=== PATIENT | male | born 1970 | race Two or more races ===

== ENCOUNTER 2021-04-19 12:32 | Emergency (ER) | payer MEDICAID, OTHER ==
[~2021-04-19] VITALS: Ht 165.1 cm; Wt 59.0 kg
[~2021-04-19 12:32] MED LIST: BUPR100T5 PO; DIVA500T2 PO
--- NOTE | 2021-04-19 12:33 | NUR ---
PT BIB SELF C/O DEPRESSED SUICIDAL PLAN TO OD ON DRUGS, ADMITS TO METH USE. PT IS AAOX4, NOT IN RESPIRATORY DISTRESS, V/S STABLE, KEPT RESTED AND COMFORTABLE. WILL CONTINUE TO MONITOR.
[2021-04-19 13:05] VITALS: BP 134/70
--- NOTE | 2021-04-19 13:05 | NUR ---
URINE SPECIMEN COLLECTED AND SENT TO LAB.
[2021-04-19 13:38] LABS: BASOPHILS % (AUTO) 0.5 % (0.0-2.0); HEMATOCRIT 37 % (39-51); HEMOGLOBIN 12.9 g/dL (13.5-17.5); LYMPHOCYTES # (AUTO) 1.7 K/uL (0.8-4.8); MEAN CORPUSCULAR HGB CONC 34 g/dl (31.0-36.0); MEAN CORPUSCULAR VOLUME 96 fL (80-96); MONOCYTES # (AUTO) 1.1 K/uL (0.1-1.30); MONOCYTES % (AUTO) 17.6 % (2.0-12.0); NEUTROPHILS # (AUTO) 2.9 K/uL (1.8-8.9); NEUTROPHILS % (AUTO) 48.9 % (43.0-81.0); PLATELET COUNT (AUTO) 215 K/uL (150-450)
[2021-04-19 13:52] LABS: CALCIUM, SERUM 8.6 mg/dL (8.5-10.1); CARBON DIOXIDE 26 mmol/L (21-32); CHLORIDE 92 mmol/L (98-107); CREATININE 1.1 mg/dL (0.6-1.3); GLUCOSE 93 mg/dL (74-106); POTASSIUM 3.5 mmol/L (3.5-5.1); SODIUM SERUM 127 mmol/L (136-145); UREA NITROGEN, BLOOD 23 mg/dL (7-18)
[2021-04-19 13:53] LABS: BILIRUBIN,URINE SMALL (NEGATIVE); COLOR,URINE YELLOW (YELLOW); LEUKOCYTE ESTERASE ,URINE NEGATIVE (NEGATIVE); NITRITE, URINE NEGATIVE (NEGATIVE); PROTEIN,URINE NEGATIVE (NEGATIVE); UGLUCOSE NEGATIVE (NEGATIVE)
[2021-04-19 13:58] LABS: ALANINE AMINOTRANSFERASE 47 U/L (12-78); ALBUMIN 3.4 g/dL (3.4-5.0); ALCOHOL, BLOOD < 3 mg/dL (0-0); ALKALINE PHOSPHATASE 64 U/L (46-116); ASPARTATE AMINOTRANSFERASE 66 U/L (15-37); BILIRUBIN,DIRECT 0.3 mg/dL (0.0-0.2); BILIRUBIN,TOTAL 0.9 mg/dL (0.2-1.0); TOTAL PROTEIN, SERUM 6.5 g/dL (6.4-8.2)
[2021-04-19 14:09] LABS: ACETAMINOPHEN < 0 ug/ml (10-30)
[2021-04-19 14:09] LABS: BACTERIA,URINE Few /HPF (None Seen); RBC,URINE 0-2 /HPF (0-2); SQUAMOUS EPITHELIAL CELL,UR Few /HPF (None Seen); WBC,URINE 0-2 /HPF (0-3)
[2021-04-19 14:21] LABS: EOSINOPHILS % (MANUAL) 6 % (0-4); LYMPHOCYTES % (MANUAL) 30 % (16-48); MONOCYTES % (MANUAL) 20 % (0-11.0); NEUTROPHILS % (MANUAL) 44 (42-76)
[2021-04-19] MEDS ORDERED: IV LR 1000 ML 1,000 ML IV ONE (14:30)
--- NOTE | 2021-04-19 15:50 | NUR ---
FA[facility]ED CLINICALS TO [facility]
--- NOTE | 2021-04-19 20:05 | NUR ---
PT PICKED UP BY [facility] FROM [facility]. PT IS IN STABLE CONDITION FOR TRANSPORT. PT IS AMBULATORY ON STEADY GAIT
== END 2021-04-19 20:07 ==
LOC: ER 12:37
DX: R45.851 Suicidal ideations (principal); F15.10 Other stimulant abuse, uncomplicated; F14.10 Cocaine abuse, uncomplicated; E87.1 Hypo-osmolality and hyponatremia; Z59.00 Homelessness unspecified; F17.290 Nicotine dependence, other tobacco product, uncomplicated; G40.909 Epilepsy, unspecified, not intractable, without status epilepticus; F32.A Depression, unspecified
CPT/HCPCS: 36415; 80048; 80076; 80143; 80307; 80320; 81001; 85007; 85025; 87426; 96360; 99285; 99406; C9803; J7120; G0480

== ENCOUNTER 2021-08-25 17:28 | Emergency (ER) | payer MEDICAID ==
[~2021-08-25] VITALS: Ht 162.6 cm; Wt 53.1 kg
[2021-08-25 18:03] LABS: BASOPHILS % (AUTO) 0.5 % (0.0-2.0); EOSINOPHILS % (AUTO) 1.2 % (0.0-6.0); HEMATOCRIT 34 % (39-51); HEMOGLOBIN 11.5 g/dL (13.5-17.5); LYMPHOCYTES # (AUTO) 1.6 K/uL (0.8-4.8); LYMPHOCYTES % (AUTO) 19.4 % (20.0-44.0); MEAN CORPUSCULAR HGB CONC 34 g/dl (31.0-36.0); MEAN CORPUSCULAR VOLUME 96 fL (80-96); MONOCYTES # (AUTO) 0.8 K/uL (0.1-1.30); MONOCYTES % (AUTO) 9.4 % (2.0-12.0); NEUTROPHILS # (AUTO) 5.8 K/uL (1.8-8.9); NEUTROPHILS % (AUTO) 69.5 % (43.0-81.0); PLATELET COUNT (AUTO) 319 K/uL (150-450); RED BLOOD CELL COUNT(AUTO) 3.56 MIL/uL (4.5-6.0); WHITE BLOOD COUNT (AUTO) 8.3 K/uL (4.3-11.0)
--- NOTE | 2021-08-25 18:06 | NUR ---
COVID SWAB COLLECTED. URINE SAMPLE OBTAINED AND SENT TO LAB.
[2021-08-25 18:25] LABS: ALANINE AMINOTRANSFERASE 35 U/L (12-78); ALBUMIN 3.6 g/dL (3.4-5.0); ALKALINE PHOSPHATASE 97 U/L (46-116); ASPARTATE AMINOTRANSFERASE 39 U/L (15-37); BILIRUBIN,DIRECT 0.2 mg/dL (0.0-0.2); BILIRUBIN,TOTAL 0.4 mg/dL (0.2-1.0); CALCIUM, SERUM 8.9 mg/dL (8.5-10.1); CARBON DIOXIDE 29 mmol/L (21-32); CHLORIDE 103 mmol/L (98-107); CREATININE 0.9 mg/dL (0.6-1.3); GLUCOSE 98 mg/dL (74-106); SODIUM SERUM 138 mmol/L (136-145); UREA NITROGEN, BLOOD 8 mg/dL (7-18)
[2021-08-25 18:29] LABS: ACETAMINOPHEN < 0 ug/ml (10-30); ALCOHOL, BLOOD < 3 mg/dL (0-0)
[2021-08-25] MEDS ORDERED: IBUPROFEN 400 MG TABLET ONE (18:57)
[2021-08-25] MEDS ORDERED: IBUPROFEN 400 MG TABLET PO ONE (19:00)
[2021-08-25 19:13] LABS: BILIRUBIN,URINE NEGATIVE (NEGATIVE); COLOR,URINE YELLOW (YELLOW); LEUKOCYTE ESTERASE ,URINE NEGATIVE (NEGATIVE); NITRITE, URINE NEGATIVE (NEGATIVE); PH,URINE 7.5 (5.0-8.0); PROTEIN,URINE NEGATIVE (NEGATIVE); UGLUCOSE NEGATIVE (NEGATIVE); UROBILINOGEN,URINE 0.2 EU/dL (0.2)
[2021-08-25 19:25] VITALS: BP 125/74
--- NOTE | 2021-08-25 19:30 | NUR ---
PT DENIED SI/HI AND REPORTED FEELING WELL AND WILLING TO LEAVE. MADE AWARE
--- NOTE | 2021-08-25 20:49 | NUR ---
Patient discharged to home in stable condition. Written and verbal after care instructions given. Patient verbalizes understanding of instruction.
== END 2021-08-25 20:50 | disposition home or self-care (01) ==
LOC: ER 17:36
DX: Z02.2 Encounter for examination for admission to residential institution (principal); R45.851 Suicidal ideations; Z20.822 Contact with and (suspected) exposure to COVID-19; Z59.00 Homelessness unspecified; G40.909 Epilepsy, unspecified, not intractable, without status epilepticus; F20.9 Schizophrenia, unspecified; F32.A Depression, unspecified; Z79.899 Other long term (current) drug therapy
CPT/HCPCS: 99285; 85025; 80048; 80076; 81003; 36415; 87426; 80143; 80320; 80307; C9803; G0480

== ENCOUNTER 2021-08-29 19:06 | Emergency (ER) | payer MEDICAID ==
--- NOTE | 2021-08-29 20:55 | NUR ---
CALL TO TRIAGE NO ANSWER
--- NOTE | 2021-08-29 21:24 | NUR ---
CALLED TO TRIAGE NO ANSWER
== END 2021-08-29 21:25 | disposition home or self-care (01) ==
LOC: ER 19:18
DX: Z53.21 Procedure and treatment not carried out due to patient leaving prior to being seen by health care provider (principal)

== ENCOUNTER 2021-09-05 19:16 | Emergency (ER) | payer MEDICAID ==
[~2021-09-05] VITALS: Ht 165.1 cm; Wt 53.1 kg
--- NOTE | 2021-09-05 20:49 | NUR ---
URINE COLLECTED SENT TO LAB
--- NOTE | 2021-09-05 20:49 | NUR ---
COVID SWAB COLLECTED SENT TO LAB
--- NOTE | 2021-09-05 21:00 | NUR ---
BIBS. TO E RBED 18. AAOX4. NOT IN RESP DISTRESS. AMBULATORY. CAME IN FOR HAVING THOUGHTS OF SUICIDE BUT HAVE NO SPECIFIC PLAN. PT IS SEEKING TO BE ADMITTED VOLUNTARILY. PT WAS GOWN, INSPECTED, WANDED AND ALL BELONGINGS PLACED IN THE LOCKER. URINE WAS COLLECETD WELL COVID SWAB. WAS AT THE BEDSIDE FOR EVAL.
[2021-09-05 21:18] LABS: BASOPHILS # (AUTO) 0.1 K/uL (0.0-0.2); EOSINOPHILS % (AUTO) 8.5 % (0.0-6.0); HEMATOCRIT 35 % (39-51); HEMOGLOBIN 11.6 g/dL (13.5-17.5); LYMPHOCYTES # (AUTO) 1.5 K/uL (0.8-4.8); LYMPHOCYTES % (AUTO) 18.9 % (20.0-44.0); MEAN CORPUSCULAR HGB CONC 33 g/dl (31.0-36.0); MEAN CORPUSCULAR VOLUME 96 fL (80-96); MONOCYTES # (AUTO) 0.4 K/uL (0.1-1.30); MONOCYTES % (AUTO) 5.3 % (2.0-12.0); NEUTROPHILS # (AUTO) 5.3 K/uL (1.8-8.9); NEUTROPHILS % (AUTO) 66.3 % (43.0-81.0); PLATELET COUNT (AUTO) 357 K/uL (150-450); RED BLOOD CELL COUNT(AUTO) 3.62 MIL/uL (4.5-6.0); WHITE BLOOD COUNT (AUTO) 8.1 K/uL (4.3-11.0)
[2021-09-05 21:37] LABS: BILIRUBIN,URINE SMALL (NEGATIVE); COLOR,URINE YELLOW (YELLOW); LEUKOCYTE ESTERASE ,URINE NEGATIVE (NEGATIVE); NITRITE, URINE NEGATIVE (NEGATIVE); PH,URINE 5.5 (5.0-8.0); PROTEIN,URINE TRACE mg/dl (NEGATIVE); UGLUCOSE NEGATIVE (NEGATIVE)
[2021-09-05] MEDS ORDERED: DIVALPROEX SODIUM 500 MG TABLET.DR PO ONE (21:47)
[2021-09-05 21:49] LABS: ALANINE AMINOTRANSFERASE 32 U/L (12-78); ALBUMIN 3.8 g/dL (3.4-5.0); ALKALINE PHOSPHATASE 72 U/L (46-116); ASPARTATE AMINOTRANSFERASE 36 U/L (15-37); BILIRUBIN,DIRECT 0.2 mg/dL (0.0-0.2); BILIRUBIN,TOTAL 0.5 mg/dL (0.2-1.0); CALCIUM, SERUM 8.6 mg/dL (8.5-10.1); CARBON DIOXIDE 27 mmol/L (21-32); CHLORIDE 99 mmol/L (98-107); GLUCOSE 52 mg/dL (74-106); POTASSIUM 3.3 mmol/L (3.5-5.1); SODIUM SERUM 133 mmol/L (136-145); TOTAL PROTEIN, SERUM 7.4 g/dL (6.4-8.2); UREA NITROGEN, BLOOD 17 mg/dL (7-18)
[2021-09-05 21:52] LABS: BACTERIA,URINE RARE /HPF (None Seen); CALCIUM OXALATE CRYSTALS,UR Many /HPF (None Seen); RBC,URINE 0-2 /HPF (0-2); URINE AMORPHOUS URATE Many /HPF (None Seen); WBC,URINE 0-2 /HPF (0-3)
[2021-09-05 21:53] LABS: MUCUS,URINE Few /LPF (None Seen)
[2021-09-05] MEDS: DIVALPROEX SODIUM 500 MG TABLET.DR PO ONE (21:54)
[2021-09-05 21:58] LABS: ALCOHOL, BLOOD < 3 mg/dL (0-0)
--- NOTE | 2021-09-06 00:30 | NUR ---
CLINICALS FAXED TO [facility]
--- NOTE | 2021-09-06 03:09 | NUR ---
PT ACCEPTED AT [facility] UNDER MD ATWOOD REPORT AFTER 9AM NUMBER [phone]
[2021-09-06] MEDS ORDERED: POTASSIUM CHLORIDE 20 MEQ TAB.PRT.SR PO ONE (04:10)
[2021-09-06] MEDS: POTASSIUM CHLORIDE 20 MEQ TAB.PRT.SR PO ONE (04:12)
--- NOTE | 2021-09-06 09:20 | NUR ---
report to nursing housekeeping supervisor [facility] awaiting transport.
--- NOTE | 2021-09-06 09:25 | NUR ---
ETA 30 MINS BLS TRANSPORT VIA [facility].
--- NOTE | 2021-09-06 09:28 | NUR ---
BLS TRANSPORT CANCELLED. TRANSPORT FROM [facility].
--- NOTE | 2021-09-06 09:31 | NUR ---
transported to [facility]. stable codition.
[2021-09-06 09:32] VITALS: BP 135/60
== END 2021-09-06 09:33 ==
LOC: ER 19:19
DX: R45.851 Suicidal ideations (principal); F20.9 Schizophrenia, unspecified; Z20.822 Contact with and (suspected) exposure to COVID-19; Z59.02 Unsheltered homelessness; G40.909 Epilepsy, unspecified, not intractable, without status epilepticus; F90.9 Attention-deficit hyperactivity disorder, unspecified type; Z91.14 Patient's other noncompliance with medication regimen; F10.10 Alcohol abuse, uncomplicated; Y90.0 Blood alcohol level of less than 20 mg/100 ml
CPT/HCPCS: 99285; 85025; 80048; 80076; 81001; 36415; 80164; 87426; 80143; 80320; 80307; C9803; G0480

== ENCOUNTER 2021-10-28 03:05 | Emergency (ER) | payer MEDICAID ==
[~2021-10-28] VITALS: Ht 165.1 cm; Wt 59.0 kg
[2021-10-28 03:52] LABS: BASOPHILS # (AUTO) 0.1 K/uL (0.0-0.2); BASOPHILS % (AUTO) 0.7 % (0.0-2.0); EOSINOPHILS % (AUTO) 2.4 % (0.0-6.0); HEMATOCRIT 34 % (39-51); HEMOGLOBIN 11.3 g/dL (13.5-17.5); LYMPHOCYTES # (AUTO) 2.2 K/uL (0.8-4.8); LYMPHOCYTES % (AUTO) 26.2 % (20.0-44.0); MEAN CORPUSCULAR HGB CONC 33 g/dl (31.0-36.0); MEAN CORPUSCULAR VOLUME 96 fL (80-96); MONOCYTES # (AUTO) 0.6 K/uL (0.1-1.30); MONOCYTES % (AUTO) 6.9 % (2.0-12.0); NEUTROPHILS # (AUTO) 5.3 K/uL (1.8-8.9); NEUTROPHILS % (AUTO) 63.8 % (43.0-81.0); PLATELET COUNT (AUTO) 352 K/uL (150-450); RED BLOOD CELL COUNT(AUTO) 3.54 MIL/uL (4.5-6.0); WHITE BLOOD COUNT (AUTO) 8.3 K/uL (4.3-11.0)
[2021-10-28 03:57] LABS: BILIRUBIN,URINE NEGATIVE (NEGATIVE); COLOR,URINE YELLOW (YELLOW); LEUKOCYTE ESTERASE ,URINE NEGATIVE (NEGATIVE); NITRITE, URINE NEGATIVE (NEGATIVE); PROTEIN,URINE NEGATIVE (NEGATIVE); UGLUCOSE NEGATIVE (NEGATIVE); UROBILINOGEN,URINE 0.2 EU/dL (0.2)
[2021-10-28] MEDS ORDERED: BACITRACIN ZINC OINT PACKET 1 EA PACKET TP ONE (04:00)
[2021-10-28] MEDS ORDERED: IBUPROFEN 600 MG TABLET PO ONE (04:00)
[2021-10-28] MEDS ORDERED: IBUPROFEN 600 MG TABLET ONE (04:06)
[2021-10-28 04:09] LABS: ALANINE AMINOTRANSFERASE 34 U/L (12-78); ALKALINE PHOSPHATASE 61 U/L (46-116); ASPARTATE AMINOTRANSFERASE 39 U/L (15-37); BILIRUBIN,DIRECT 0.1 mg/dL (0.0-0.2); BILIRUBIN,TOTAL 0.4 mg/dL (0.2-1.0); CALCIUM, SERUM 9.5 mg/dL (8.5-10.1); CARBON DIOXIDE 30 mmol/L (21-32); CHLORIDE 94 mmol/L (98-107); CREATININE 0.9 mg/dL (0.6-1.3); GLUCOSE 82 mg/dL (74-106); POTASSIUM 4.3 mmol/L (3.5-5.1); SODIUM SERUM 129 mmol/L (136-145); TOTAL PROTEIN, SERUM 7.4 g/dL (6.4-8.2); UREA NITROGEN, BLOOD 15 mg/dL (7-18)
[2021-10-28 04:17] LABS: ACETAMINOPHEN < 2 ug/ml (10-30); ALCOHOL, BLOOD < 3 mg/dL (0-0)
--- NOTE | 2021-10-28 05:34 | NUR ---
FACESHEET AND CLINICALS FAXED TO [facility].
[2021-10-28] MEDS ORDERED: buPROPion SR 100 MG TABLET.ER PO SCH (10:30)
[2021-10-28] MEDS ORDERED: DIVALPROEX SODIUM 500 MG TABLET.DR PO ONE ×2 (10:30→10:34)
--- NOTE | 2021-10-28 12:19 | NUR ---
ACCEPTED AT [facility] BY DR APPLE,WEAVING TEACHER AT [phone]
--- NOTE | 2021-10-28 13:09 | NUR ---
PT STATED HE IS NO LONGER SUICIDAL AND WANTS TO LEAVE, DR VANG AWARE, EVALUATED PT AND DISCHARGED HIM IN STABLE CONDITION.
[2021-10-28 13:10] VITALS: BP 122/60
== END 2021-10-28 13:11 | disposition home or self-care (01) ==
LOC: ER 03:06
DX: R45.851 Suicidal ideations (principal); F20.9 Schizophrenia, unspecified; E87.1 Hypo-osmolality and hyponatremia; Z59.00 Homelessness unspecified; Z20.822 Contact with and (suspected) exposure to COVID-19; G40.909 Epilepsy, unspecified, not intractable, without status epilepticus; F12.90 Cannabis use, unspecified, uncomplicated; S90.424A Blister (nonthermal), right lesser toe(s), initial encounter; X58.XXXA Exposure to other specified factors, initial encounter; Y92.89 Other specified places as the place of occurrence of the external cause; Z79.899 Other long term (current) drug therapy
CPT/HCPCS: 36415; 80048-TC; 80076-TC; 85025-TC; C9803; G0480

== ENCOUNTER 2021-11-07 07:02 | Emergency (ER) | payer MEDICAID ==
[~2021-11-07] VITALS: Ht 165.1 cm; Wt 63.5 kg
--- NOTE | 2021-11-07 07:52 | NUR ---
urine sample and covid swab collected
[2021-11-07 08:27] LABS: ALANINE AMINOTRANSFERASE 24 U/L (12-78); ALBUMIN 4.3 g/dL (3.4-5.0); ALKALINE PHOSPHATASE 67 U/L (46-116); ASPARTATE AMINOTRANSFERASE 38 U/L (15-37); BILIRUBIN,DIRECT 0.2 mg/dL (0.0-0.2); BILIRUBIN,TOTAL 0.5 mg/dL (0.2-1.0); CALCIUM, SERUM 9.2 mg/dL (8.5-10.1); CARBON DIOXIDE 29 mmol/L (21-32); CHLORIDE 98 mmol/L (98-107); CREATININE 1.3 mg/dL (0.6-1.3); GLUCOSE 94 mg/dL (74-106); POTASSIUM 4.2 mmol/L (3.5-5.1); SODIUM SERUM 133 mmol/L (136-145); TOTAL PROTEIN, SERUM 7.6 g/dL (6.4-8.2); UREA NITROGEN, BLOOD 25 mg/dL (7-18)
[2021-11-07 08:32] LABS: BASOPHILS % (AUTO) 0.3 % (0.0-2.0); EOSINOPHILS % (AUTO) 5.1 % (0.0-6.0); HEMATOCRIT 36 % (39-51); HEMOGLOBIN 11.7 g/dL (13.5-17.5); LYMPHOCYTES # (AUTO) 2.8 K/uL (0.8-4.8); LYMPHOCYTES % (AUTO) 37.6 % (20.0-44.0); MEAN CORPUSCULAR HGB CONC 33 g/dl (31.0-36.0); MEAN CORPUSCULAR VOLUME 94 fL (80-96); MONOCYTES # (AUTO) 0.7 K/uL (0.1-1.30); MONOCYTES % (AUTO) 9.2 % (2.0-12.0); NEUTROPHILS # (AUTO) 3.6 K/uL (1.8-8.9); NEUTROPHILS % (AUTO) 47.8 % (43.0-81.0); PLATELET COUNT (AUTO) 263 K/uL (150-450); RED BLOOD CELL COUNT(AUTO) 3.77 MIL/uL (4.5-6.0); WHITE BLOOD COUNT (AUTO) 7.5 K/uL (4.3-11.0)
[2021-11-07 08:34] LABS: ACETAMINOPHEN < 10 ug/ml (10-30); ALCOHOL, BLOOD < 3 mg/dL (0-0)
[2021-11-07 08:43] LABS: BILIRUBIN,URINE NEGATIVE (NEGATIVE); COLOR,URINE YELLOW (YELLOW); LEUKOCYTE ESTERASE ,URINE NEGATIVE (NEGATIVE); NITRITE, URINE NEGATIVE (NEGATIVE); PH,URINE 6.5 (5.0-8.0); PROTEIN,URINE NEGATIVE (NEGATIVE); UGLUCOSE NEGATIVE (NEGATIVE); UROBILINOGEN,URINE 0.2 EU/dL (0.2)
--- NOTE | 2021-11-07 11:51 | NUR ---
Utilization Supervisor Consult SW received a consult because pt. requested admission to [facility] for voluntary psychiatric tx. TYSON met with pt. who disclosed that he was discharged from [facility] around 9 am. Per pt. report, his prescrition medication was sent to ([facility]) pharmacy but when he showed up they had not received orders for his medication. Pt. requested to have [facility] During check in, pt appeared disheveled and engaged in conversation with TYSON. TYSON assessed for SI (suicidal ideation) in which pt. denied plan, means, or intent. Pt disclosed he had used meth and cannabis. TYSON contacted [facility] to send prescriptions to [facility] [[address] [place] [address] ] which will be available to be picked up today in the afternoon. Pt is agrreable to plan. TYSON provided pt with TAP card with bus directions to pharmacy. TYSON provided pt. with long term resources, mental health resources, and addiction resources in which pt. accepted them. Pt. signed the homeless waiver and was placed in his chart. TYSON discused discharge plan with and he was agreeable. Year-round shelters: [facility] [place] [address] [place], [place] [id number] ; [facility] [place] [address] [place] [address]; [facility] [id number] [facility]. [facility] [address] Hygiene: [facility]: [address]. [place] ; [facility] [address] [facility] ; [facility] [address] [place] . Food Resources: [place] [facility] at [facility]- [address]. [place]; Meet Each Need with Dignity (MEND) [address] [address] Mal[address]; [facility] [address] [facility]; [facility] [address] [place]. Mental Health resources provided: [facility] [address] [place], [place] [address] ; [facility] [address] [facility] [address], [place] [address] ; [facility] Mental [facility] [address] [place], [place] [phone] ; [facility] [address] [place], [place] [address] Healthcare Clinics: [facility] [address] [facility], [address] [place]. [place] ; [facility] [address] [facility] [address] [place] [address]; [facility] [address] [facility] [place] [address] [phone] Counseling--Outpatient [facility] [address], [place] [address] (Specializes in in-depth psychotherapy for emotional distress: anxiety, depression, interpersonal conflicts, life transitions, childhood abuse) [facility] [address] [place] [address] (Assist with solving problem marital difficulties, separation & divorce, aging parents, & grief, chronic & terminal illness) [facility] [address] [place] [address] (Deal with loss & grief, anxiety, marital difficulties) Homebound/Mental Health Services [address], [address] [place], [place] [id number] (Provide in-home mental services to people who are incapable of leaving their homes) [facility] Needs of the Elderly Senior Service/Resource Center [address] [place] [address] [facility] [address] [facility] [place] [address] PSYCHIATRIC OUTPATIENT SERVICES [facility] Partial Hospitalization and Intensive Outpatient Program (Managed Care and [place] Only)[address]. [facility] [phone] [facility] Partial Hospitalization and Outpatient [address] [place], [place] [phone] TROY CARVAJAL [facility] [place] [id number] [facility]. [address] [place], [place] [phone] [facility] Partial Hospitalization and Outpatient Wtagqgf60426 [facility] Troy Carvajal, [phone] Substance Abuse resources provided included: [facility] Substance Abuse Self-Helpline ([facility]) ; [facility]LP [address] [facility] [phone] ; [facility] [place] [address] [facility] [address] ; [facility] [address] [facility] [address] ; [facility] [address] [facility] [address] ; [facility] 4940 [facility] [address] ; [facility] [address] [facility] [address] ; [facility] Substance Abuse Helpline([facility])-[facility] ; [facility] ; [facility] [place]; [facility] [place]; [facility] [place]; [facility] [place] Davidsonwhit; [facility] [place]; [facility] [place]; [facility] [place] [facility] [place]; Alcoholics Anonymous -SFV; [place] ; Marijuana Anonymous -SFV; Narcotics Anonymous www.na.org;
--- NOTE | 2021-11-07 13:14 | NUR ---
Patient discharged to home in stable condition. Written and verbal after care instructions given. Patient verbalizes understanding of instruction.
[2021-11-07 13:15] VITALS: BP 115/84
== END 2021-11-07 13:16 | disposition home or self-care (01) ==
LOC: ER 07:12
DX: Z00.8 Encounter for other general examination (principal); Z76.0 Encounter for issue of repeat prescription; G40.909 Epilepsy, unspecified, not intractable, without status epilepticus; Z20.822 Contact with and (suspected) exposure to COVID-19; Z59.00 Homelessness unspecified
CPT/HCPCS: 99283; 85025; 80048; 80076; 81003; 36415; 87426; 80143; 80320; 80307; C9803; G0480

== ENCOUNTER 2021-12-06 08:50 | Inpatient (IN) | payer MEDICAID ==
[~2021-12-06] VITALS: Ht 165.1 cm; Wt 56.2 kg
--- NOTE | 2021-12-06 08:55 | NUR ---
BIB RA88 FROM [facility] FOR ALTERED MENTAL STATUS AND SLURRED SPEECH.L AST KNOWN WELL IS UNKOWN. BLOD GLUCOSE HIGHWAY MAINTENANCE TECHNICIAN 126. PT ATTACHED TO MONITOR, VITALS ARE WITHIN NORMAL LIMITS. DR LANDRUM AT BEDSIDE FOR EVAL.
--- NOTE | 2021-12-06 09:01 | NUR ---
CODE STROKE CALLED
--- NOTE | 2021-12-06 09:05 | NUR ---
PT TO CT VIA [facility]OTOCALS.
--- NOTE | 2021-12-06 09:07 | NUR ---
CALLED TELE MED [facility] [phone] Marvel MONTOYA
--- NOTE | 2021-12-06 09:21 | NUR ---
PT BACK FROM CT, PT WAS COMBATIVE WITH STAFF DURING CT, CTA WAS NOT PERFORMED, MD AWARE.
[2021-12-06 09:28] LABS: BASOPHILS % (AUTO) 0.4 % (0.0-2.0); EOSINOPHILS % (AUTO) 19.5 % (0.0-6.0); HEMATOCRIT 32 % (39-51); HEMOGLOBIN 10.7 g/dL (13.5-17.5); LYMPHOCYTES # (AUTO) 1.5 K/uL (0.8-4.8); LYMPHOCYTES % (AUTO) 29.1 % (20.0-44.0); MEAN CORPUSCULAR HGB CONC 33 g/dl (31.0-36.0); MEAN CORPUSCULAR VOLUME 92 fL (80-96); MONOCYTES # (AUTO) 0.7 K/uL (0.1-1.30); MONOCYTES % (AUTO) 12.5 % (2.0-12.0); NEUTROPHILS % (AUTO) 38.5 % (43.0-81.0); PLATELET COUNT (AUTO) 324 K/uL (150-450); RED BLOOD CELL COUNT(AUTO) 3.49 MIL/uL (4.5-6.0); WHITE BLOOD COUNT (AUTO) 5.2 K/uL (4.3-11.0)
[2021-12-06] MEDS ORDERED: IV NS 0.9% 1,000 ML BAG IV ONE (09:30)
--- NOTE | 2021-12-06 09:32 | NUR ---
DR. MONTOYA SPEAKING WITH DR. JACQUES.
[2021-12-06 09:40] LABS: CALCIUM, SERUM 8.9 mg/dL (8.5-10.1); CARBON DIOXIDE 30 mmol/L (21-32); CHLORIDE 101 mmol/L (98-107); GLUCOSE 76 mg/dL (74-106); POTASSIUM 5.6 mmol/L (3.5-5.1); SODIUM SERUM 134 mmol/L (136-145); UREA NITROGEN, BLOOD 16 mg/dL (7-18)
[2021-12-06 09:46] LABS: ALANINE AMINOTRANSFERASE 15 U/L (12-78); ALBUMIN 3.3 g/dL (3.4-5.0); ALKALINE PHOSPHATASE 63 U/L (46-116); ASPARTATE AMINOTRANSFERASE 29 U/L (15-37); BILIRUBIN,DIRECT 0.1 mg/dL (0.0-0.2); BILIRUBIN,TOTAL 0.3 mg/dL (0.2-1.0); TOTAL PROTEIN, SERUM 6.8 g/dL (6.4-8.2)
[2021-12-06 09:48] LABS: SERUM AMMONIA 76 umol/L (11-32)
[2021-12-06 09:49] LABS: ALCOHOL, BLOOD < 3 mg/dL (0-0)
[2021-12-06] MEDS ORDERED: LORAZEPAM INJ 2 MG/ML VIAL ONE (09:59)
[2021-12-06] MEDS ORDERED: LORAZEPAM INJ 2 MG/ML VIAL IV ONE (10:00)
[2021-12-06] MEDS ORDERED: OLANZAPINE 10 MG VIAL IM ONE ×3 (10:49→18:00)
--- NOTE | 2021-12-06 10:54 | NUR ---
URINE COLLECTED AND SENT
--- NOTE | 2021-12-06 11:00 | NUR ---
MOVE SHEET SUBMITTED.
--- NOTE | 2021-12-06 11:09 | NUR ---
COVID TEST COLLECTED AND SENT
--- NOTE | 2021-12-06 12:10 | NUR ---
PT IS COOPERATIVE ALLOWED ADDITIONAL INSERTION OF IV FOR CTA. IV ESTABLIHSED R UPPER ARM 20G.
--- NOTE | 2021-12-06 13:02 | NUR ---
PT TAKEN TO CT VIA [facility]
[2021-12-06] MEDS ORDERED: IV NS 0.9% 250 ML IV ONE (13:04)
[2021-12-06] MEDS ORDERED: IOHEXOL-350 100 ML VIAL IV ONE (13:04)
--- NOTE | 2021-12-06 13:18 | NUR ---
PT RETURNED FROM CT VIA [facility]
[2021-12-06] MEDS ORDERED: IV D5/0.45 NACL 1,000 ML IV PRN (14:00)
[2021-12-06] MEDS ORDERED: MAG HYDROX/AL HYDROX/SIMETH 30 ML UDC PO PRN (14:00)
[2021-12-06] MEDS ORDERED: ONDANSETRON HCL/PF 4 MG/2 ML VIAL IVP PRN (14:00)
[2021-12-06] MEDS ORDERED: Z GUARD REMEDY 4 OZ OINT TP PRN (14:00)
[2021-12-06] MEDS ORDERED: SODIUM POLYSTYRENE SULFONATE 15 G/60 ML BOTTLE PO ONE (14:00)
[2021-12-06] MEDS ORDERED: LACTULOSE 10 G/15 ML UDC (PYXIS) PO ONE (14:00)
[2021-12-06] MEDS ORDERED: MAGNESIUM HYDROXIDE 30 ML UDC PO PRN (14:00)
[2021-12-06] MEDS ORDERED: ACETAMINOPHEN 325 MG TABLET PO PRN (14:00)
--- NOTE | 2021-12-06 14:01 | NUR ---
GOING TO 320-1
--- NOTE | 2021-12-06 14:19 | NUR ---
REPORT GIVEN TO THONY
[2021-12-06] MEDS ORDERED: ENOXAPARIN SODIUM 40 MG/0.4 ML DISP.SYRIN SQ SCH (15:00)
--- NOTE | 2021-12-06 15:07 | NUR ---
TRANSFERRED TO BED 320 IN STABLE CONDITION
--- NOTE | 2021-12-06 15:10 | NUR ---
MANAGER LATIN ADMITTING NOTES PATIENT BROUGHT TO UNIT VIA GURNEY AND TRANSFERRED TO BED WITHOUT INCIDENT. PATIENT A/O X 2 WITH SLURRED SPEECH, TOLERATING WELL ON ROOM AIR WITH NO S/S RESPIRATORY DISTRESS. NO COMPLAINTS OF PAIN OR DISCOMFORT AT THIS TIME. LUIS ANTONIO # 20 G SL CLEAN, INTACT, AND FLUSHING WELL. SAFETY MEASURES IN PLACE: BED IN LOWEST LOCKED POSITION, SIDE RAILS UP X 2, CALL LIGHT WITHIN REACH. PATIENT REFUSING TELE MONITORING AT THIS TIME. WILL CONTINUE TO MONITOR.
--- NOTE | 2021-12-06 16:00 | NUR ---
SENIOR STRATEGY MANAGER NOTES PATIENT STATED HE TAKES INSULIN; PATIENT PLACED ON [facility] SOFT DIET WITH A1C LAB TEST ORDERED. MADE AWARE.
--- NOTE | 2021-12-06 17:50 | NUR ---
PULVERIZER NOTES PATIENT AGITATED AND RESTLESS, MEDICATION REQUESTED FROM MD. OLANZAPINE 5 MG IM ADMINISTERED ORDERED. PSYCH CONSULT PLACED FOR DR HOOVER, FACE SHEET FAXED TO GPS UNIT. WILL CONTINUE TO MONITOR FOR S/S AGITATION.
[2021-12-06] MEDS: NICOTINE PATCH (14MG) 14 MG PATCH.TD24 TD SCH (17:53)
--- NOTE | 2021-12-06 19:30 | NUR ---
OCCUPATIONAL HEALTH NURSE SUPERVISOR OPENING NOTE RECEIVED PT SLEEPING IN BED. PT A/O X2. NO ACUTE DISTRESS NOTED, NO S/S OF PAIN OR DISCOMFORT SEEN AT THIS TIME. SAFETY MEASURES IN PLACE: BED LOCKED IN LOWEST POSITION, SIDE RAILS UP X2, CALL LIGHT, AND BED SIDE TABLE WITHIN REACH. WILL CONTINUE TO MONITOR PT.
[2021-12-06 20:00] VITALS: BP 107/64
[2021-12-06] MEDS: HYDROCODONE/APAP 5/325MG TABLET PO PRN (23:30)
--- NOTE | 2021-12-06 23:41 | NUR ---
MACHINE ENGRAVER NOTE PT IS VERY AGITATED, AND VERBALLY ABUSIVE. PT IS STATING THAT THEY INSERTED AN IV TO HIS ARM EARLIER TODAY, WITHOUT HIS AGREEMENT. HE IS ASKING FOR IV ACCESS TO BE REMOVED. HE IS DECLINING IV FLUID. PT IS ASKED TO GO BACK TO BED, AND IN AM WE WILL TAKE CARE OF IV. PT IS GOING BACK AND FORTH, FROM ROOM TO HALLWAY. HE IS YELLING IN HALLWAY, AND CALLING RN A "India" MP. IS CALLED, AND MADE AWARE.
[2021-12-07] VITALS: BP 120/61
[2021-12-07] MEDS ORDERED: LORAZEPAM INJ 2 MG/ML VIAL IM ONE (02:30)
--- NOTE | 2021-12-07 02:30 | NUR ---
LOOM CONTROL CHAIN BUILDER NOTE PT IS RESTLESS, AGITATED, SCREAMING IN HIS ROOM. MD BARRERA CALLED. NEW ORDER RECEIVED FOR ATIVAN 2 MG IM X1. ORDER IMPLEMENTED. MED ADMINISTERED TO PT.
[2021-12-07] MEDS: HYDROCODONE/APAP 5/325MG TABLET PO PRN (06:26)
[2021-12-07 06:34] LABS: BASOPHILS % (AUTO) 0.5 % (0.0-2.0); EOSINOPHILS % (AUTO) 14.3 % (0.0-6.0); HEMATOCRIT 32 % (39-51); HEMOGLOBIN 10.5 g/dL (13.5-17.5); LYMPHOCYTES # (AUTO) 1.2 K/uL (0.8-4.8); LYMPHOCYTES % (AUTO) 23.5 % (20.0-44.0); MEAN CORPUSCULAR HGB CONC 33 g/dl (31.0-36.0); MEAN CORPUSCULAR VOLUME 92 fL (80-96); MONOCYTES # (AUTO) 0.6 K/uL (0.1-1.30); NEUTROPHILS # (AUTO) 2.6 K/uL (1.8-8.9); NEUTROPHILS % (AUTO) 49.7 % (43.0-81.0); PLATELET COUNT (AUTO) 323 K/uL (150-450); RED BLOOD CELL COUNT(AUTO) 3.48 MIL/uL (4.5-6.0); WHITE BLOOD COUNT (AUTO) 5.3 K/uL (4.3-11.0)
--- NOTE | 2021-12-07 07:02 | NUR ---
CENTRAL SUPPLY TECH CLOSING NOTE LEFT PT SITTING IN BED, WAITING FOR BREAKFAST. PT A/OX2-3, ABLE TO MAKE NEEDS KNOWN. NO S/S OF ACUTE DISTRESS, NO C/O PAIN OR DISCOMFORT AT THIS TIME. SAFETY MEASURES OBSERVED: BED LOCKED, IN LOWEST POSITION, SIDE RAILS PADDED, AND UP X 3, CALL LIGHT, AND BED SIDE TABLE WITHIN REACH. WILL ENDORSE PT'S CARE TO AM SHIFT NURSE.
[2021-12-07 07:06] LABS: CALCIUM, SERUM 8.9 mg/dL (8.5-10.1); CREATININE 0.9 mg/dL (0.6-1.3); MAGNESIUM 1.8 mg/dL (1.8-2.4); POTASSIUM 3.7 mmol/L (3.5-5.1)
[2021-12-07] MEDS ORDERED: PANTOPRAZOLE 40 MG TABLET.DR PO SCH (07:30)
--- NOTE | 2021-12-07 07:30 | NUR ---
RN Receiving Report. Patient AOx4, able to express his concerns. Patient in room with no signs of distress. Introduced my self to patient and discuss plan of care, patient verbalizes agreement. Patient states he wants to go back to [facility] since they were going to place with at a facility in [place].Patient interested in discharging. All safety precautions taken, call light and table within reach and bed at lowest position. Will continue to monitor throughout shift and provide care as needed.
[2021-12-07 08:00] VITALS: BP 132/82
[2021-12-07] MEDS: NICOTINE PATCH (14MG) 14 MG PATCH.TD24 TD SCH (09:00)
[2021-12-07] MEDS ORDERED: TRAZ-182 PO (10:25)
[2021-12-07] MEDS ORDERED: LORA-259 PO (10:25)
[2021-12-07] MEDS ORDERED: DIVA-78 PO (10:25)
[2021-12-07] MEDS ORDERED: TRIH2TAB3 PO (10:25)
[2021-12-07] MEDS ORDERED: HYDR-500 PO (10:25)
[2021-12-07] MEDS ORDERED: FLUP5TAB14 PO (10:25)
[2021-12-07] MEDS ORDERED: CEPH500C2 PO (10:25)
[2021-12-07] MEDS ORDERED: QUET100T PO (10:25)
[2021-12-07] MEDS ORDERED: BUPR-54 PO (10:25)
[2021-12-07] MEDS ORDERED: TEMA15CA PO (10:25)
[2021-12-07] MEDS ORDERED: TRAM50TA2 PO (10:25)
[2021-12-07] MEDS ORDERED: IBUP-1957 PO (10:25)
--- NOTE | 2021-12-07 10:51 | NUR ---
Discharge Planning-ABIGAIL Taylor of [facility] ph. [phone] [phone] Unit #2 Called and requested medication, Medications entered by Med Recon Per facility patient was accepted at [facility] ph [phone] Address: [address] [place] [address] Per Cheryl they are able to provide transportation.
[2021-12-07 12:00] VITALS: BP 148/82
--- NOTE | 2021-12-07 12:20 | NUR ---
nipple threader Note Patient AOx4 able to express his own concerns. States he is ready for discharg and meets criteria. Discharge order in and confirmed with charge nurse. Called [facility] [phone] patient can go and brass pickler belongings. General Farmer for [facility] is here to provide Transportation to facility will provide ride. All safety precautions taken, IV removed, intact and patent. Patient left unit safely.
== END 2021-12-07 12:30 | disposition short-term general hospital (02) | DRG 423 ==
LOC: ER 08:53 → TELE 14:07
DX: E72.20 Disorder of urea cycle metabolism, unspecified (principal); K76.82 Hepatic encephalopathy; F29 Unspecified psychosis not due to a substance or known physiological condition; E87.1 Hypo-osmolality and hyponatremia; E87.5 Hyperkalemia; Z20.822 Contact with and (suspected) exposure to COVID-19; G40.909 Epilepsy, unspecified, not intractable, without status epilepticus; F20.9 Schizophrenia, unspecified; D64.9 Anemia, unspecified; Y90.0 Blood alcohol level of less than 20 mg/100 ml; F10.11 Alcohol abuse, in remission; E87.6 Hypokalemia; Z79.899 Other long term (current) drug therapy
CPT/HCPCS: 36415; 70450-TC; 70496-TC; 70498-TC; 71045-TC; 80048-TC; 80076-TC; 82140-TC; 82962-TC; 83735-TC; 84100-TC; 84484-TC; 85025-TC; 85730-TC; 87081-TC; 97116-TC; 97530-TC; C9803; G0378; G0480; J1650; J2060; J3490; J7030; J7050; Q9967

== ENCOUNTER 2021-12-16 15:44 | Emergency (ER) | payer MEDICAID ==
[~2021-12-16] VITALS: Ht 167.6 cm; Wt 61.2 kg
[~2021-12-16 15:44] MED LIST changes: +BUPR-54 PO; -BUPR100T5 PO; +DIVA-78 PO; -DIVA500T2 PO; +FLUP5TAB14 PO; +HYDR-500 PO; +IBUP-1957 PO; +LORA-259 PO; +QUET100T PO; +TEMA15CA PO; +TRAM50TA2 PO; +TRAZ-182 PO; +TRIH2TAB3 PO
--- NOTE | 2021-12-16 16:24 | NUR ---
URINE SAMPLE COLLECTED AND SENT TO LAB
[2021-12-16 16:41] LABS: BASOPHILS # (AUTO) 0.1 K/uL (0.0-0.2); BASOPHILS % (AUTO) 0.9 % (0.0-2.0); EOSINOPHILS % (AUTO) 0.9 % (0.0-6.0); HEMATOCRIT 32 % (39-51); HEMOGLOBIN 10.7 g/dL (13.5-17.5); LYMPHOCYTES # (AUTO) 2.3 K/uL (0.8-4.8); LYMPHOCYTES % (AUTO) 27.1 % (20.0-44.0); MEAN CORPUSCULAR HGB CONC 34 g/dl (31.0-36.0); MEAN CORPUSCULAR VOLUME 89 fL (80-96); MONOCYTES # (AUTO) 1.3 K/uL (0.1-1.30); MONOCYTES % (AUTO) 14.7 % (2.0-12.0); NEUTROPHILS # (AUTO) 4.8 K/uL (1.8-8.9); NEUTROPHILS % (AUTO) 56.4 % (43.0-81.0); PLATELET COUNT (AUTO) 276 K/uL (150-450); RED BLOOD CELL COUNT(AUTO) 3.59 MIL/uL (4.5-6.0); WHITE BLOOD COUNT (AUTO) 8.6 K/uL (4.3-11.0)
[2021-12-16 16:56] LABS: ALBUMIN 4.3 g/dL (3.4-5.0); BILIRUBIN,DIRECT 0.2 mg/dL (0.0-0.2); BILIRUBIN,TOTAL 0.8 mg/dL (0.2-1.0); CALCIUM, SERUM 9.2 mg/dL (8.5-10.1); CREATININE 1.2 mg/dL (0.6-1.3); POTASSIUM 3.2 mmol/L (3.5-5.1); TOTAL PROTEIN, SERUM 7.5 g/dL (6.4-8.2)
[2021-12-16 17:04] LABS: BILIRUBIN,URINE NEGATIVE (NEGATIVE); COLOR,URINE YELLOW (YELLOW); LEUKOCYTE ESTERASE ,URINE NEGATIVE (NEGATIVE); NITRITE, URINE NEGATIVE (NEGATIVE); PROTEIN,URINE NEGATIVE (NEGATIVE); UGLUCOSE NEGATIVE (NEGATIVE); UROBILINOGEN,URINE 0.2 EU/dL (0.2)
[2021-12-16] MEDS ORDERED: ACETAMINOPHEN 325 MG TABLET ONE (17:49)
[2021-12-16] MEDS ORDERED: KETOROLAC TROMETHAMINE 15 MG/ML VIAL ONE (17:49)
[2021-12-16] MEDS: ACETAMINOPHEN 325 MG TABLET PO ONE (17:54)
[2021-12-16] MEDS: KETOROLAC TROMETHAMINE INJ 30 MG/ML VIAL IM ONE (17:54)
[2021-12-16 18:05] LABS: BACTERIA,URINE None seen /HPF (None Seen); RBC,URINE 0-2 /HPF (0-2); SQUAMOUS EPITHELIAL CELL,UR 0-2 /HPF (None Seen); WBC,URINE 0-2 /HPF (0-3)
[2021-12-16] MEDS: QUETIAPINE FUMARATE 100 MG TABLET PO STA (19:50)
[2021-12-16] MEDS ORDERED: QUETIAPINE FUMARATE 100 MG TABLET ONE (19:53)
[2021-12-16 20:00] VITALS: BP 136/70
--- NOTE | 2021-12-16 21:29 | NUR ---
FACESHEET AND CLINICALS FAXED TO [facility].
--- NOTE | 2021-12-17 01:55 | NUR ---
ACCEPTED AT [facility] UNDER DR COLLAZO NUMBER FOR REPORT [phone]
--- NOTE | 2021-12-17 02:01 | NUR ---
[facility] ETA 75-80 MINS
--- NOTE | 2021-12-17 02:59 | NUR ---
REPORT GIVEN TO MELVIN
--- NOTE | 2021-12-17 03:21 | NUR ---
REPORT GIVEN TO EMS AT BEDSIDE
== END 2021-12-17 03:33 ==
LOC: ER 15:46
DX: R45.851 Suicidal ideations (principal); F15.10 Other stimulant abuse, uncomplicated; Z59.02 Unsheltered homelessness; G40.909 Epilepsy, unspecified, not intractable, without status epilepticus; F31.9 Bipolar disorder, unspecified; F20.9 Schizophrenia, unspecified; Z79.899 Other long term (current) drug therapy; Z20.822 Contact with and (suspected) exposure to COVID-19
CPT/HCPCS: 36415; 80048-TC; 80076-TC; 81001; 85025-TC; C9803; G0480; J1885

== ENCOUNTER 2021-12-29 09:29 | Emergency (ER) | payer MEDICAID ==
[~2021-12-29] VITALS: Ht 165.1 cm; Wt 61.2 kg
--- NOTE | 2021-12-29 09:45 | NUR ---
DR AYALA AT BEDSIDE
--- NOTE | 2021-12-29 09:50 | NUR ---
COVID SWAB COLLECTED AND SENT TO LAB
[2021-12-29 10:26] LABS: BASOPHILS # (AUTO) 0.1 K/uL (0.0-0.2); BASOPHILS % (AUTO) 0.4 % (0.0-2.0); EOSINOPHILS % (AUTO) 4.2 % (0.0-6.0); HEMATOCRIT 31 % (39-51); HEMOGLOBIN 10.3 g/dL (13.5-17.5); LYMPHOCYTES # (AUTO) 1.4 K/uL (0.8-4.8); LYMPHOCYTES % (AUTO) 9.6 % (20.0-44.0); MEAN CORPUSCULAR HGB CONC 33 g/dl (31.0-36.0); MEAN CORPUSCULAR VOLUME 90 fL (80-96); MONOCYTES # (AUTO) 1.2 K/uL (0.1-1.30); MONOCYTES % (AUTO) 8.5 % (2.0-12.0); NEUTROPHILS # (AUTO) 10.9 K/uL (1.8-8.9); NEUTROPHILS % (AUTO) 77.3 % (43.0-81.0); PLATELET COUNT (AUTO) 325 K/uL (150-450); WHITE BLOOD COUNT (AUTO) 14.1 K/uL (4.3-11.0)
[2021-12-29 10:45] LABS: ALANINE AMINOTRANSFERASE 37 U/L (12-78); ALBUMIN 3.1 g/dL (3.4-5.0); ALCOHOL, BLOOD < 3 mg/dL (0-0); ALKALINE PHOSPHATASE 110 U/L (46-116); ASPARTATE AMINOTRANSFERASE 29 U/L (15-37); BILIRUBIN,DIRECT 0.2 mg/dL (0.0-0.2); BILIRUBIN,TOTAL 0.8 mg/dL (0.2-1.0); CALCIUM, SERUM 8.7 mg/dL (8.5-10.1); CARBON DIOXIDE 28 mmol/L (21-32); GLUCOSE 90 mg/dL (74-106); POTASSIUM 4.1 mmol/L (3.5-5.1); SODIUM SERUM 134 mmol/L (136-145); UREA NITROGEN, BLOOD 17 mg/dL (7-18)
[2021-12-29 10:47] LABS: ACETAMINOPHEN 0 ug/ml (10-30)
[2021-12-29] MEDS ORDERED: OLANZAPINE ZYDIS 5 MG TAB.RAPDIS PO ONE (11:00)
[2021-12-29 11:19] LABS: BILIRUBIN,URINE NEGATIVE (NEGATIVE); COLOR,URINE YELLOW (YELLOW); LEUKOCYTE ESTERASE ,URINE NEGATIVE (NEGATIVE); NITRITE, URINE NEGATIVE (NEGATIVE); PROTEIN,URINE NEGATIVE (NEGATIVE); UGLUCOSE NEGATIVE (NEGATIVE); UROBILINOGEN,URINE 0.2 EU/dL (0.2)
[2021-12-29] MEDS ORDERED: OLANZAPINE 5 MG TABLET ONE (11:27)
[2021-12-29 16:03] VITALS: BP 100/72
--- NOTE | 2021-12-29 16:08 | NUR ---
CLINICALS FAXED TO [facility].
--- NOTE | 2021-12-29 16:47 | NUR ---
SPOKE TO LATONYA, PT CLINICALS UNDER REVIEW. AWAITING FEED BACK.
--- NOTE | 2021-12-29 17:46 | NUR ---
DINNER TRAY PROVIDED. TOLERATED WELL
--- NOTE | 2021-12-29 18:28 | NUR ---
FOLLOWED UP WITH [facility], PT IS ACCEPTED CLINICALLY AND INSURANCE IS OK, WAITING FOR BED PER RONAL.
--- NOTE | 2021-12-29 19:16 | NUR ---
PT ACCEPTED TO [facility] UNDER THE CARE OF DR. PECK. NURSE SUPPORT # , EXT. [phone]. REQUESTED PT TO BE SENT AFTER 2100.
--- NOTE | 2021-12-29 19:20 | NUR ---
[facility] CALLED FOR TRANSPORT, ETA 2100.
--- NOTE | 2021-12-29 21:03 | NUR ---
REPORT GIVEN TO IJ AT [facility]
--- NOTE | 2021-12-29 21:49 | NUR ---
PT WAS PICKED UP BY [facility] VIA ALIRIO CLAHOUN TRANSFERRED TO [facility] IN STABLE CONDITION. BELONGINGS WERE PICKED UP.
== END 2021-12-29 21:54 ==
LOC: ER 09:29
DX: R45.851 Suicidal ideations (principal); G40.909 Epilepsy, unspecified, not intractable, without status epilepticus; Z72.0 Tobacco use; F32.A Depression, unspecified; Z59.00 Homelessness unspecified; Z20.822 Contact with and (suspected) exposure to COVID-19
CPT/HCPCS: 99285; 85025; 80048; 80076; 81003; 36415; 87426; 80143; 80320; 80307; C9803; G0480

== ENCOUNTER 2022-01-08 14:17 | Emergency (ER) | payer MEDICAID ==
[~2022-01-08] VITALS: Ht 165.1 cm; Wt 52.2 kg
--- NOTE | 2022-01-08 15:00 | NUR ---
pt self presents to ed c/o suicidal ideation s/p leaving his rehab to smoke "meth" plan is to "slit his throat." requesting for voluntary psychiatric admission to [facility]. denies hi. verbally responsive. vss. awaiting md james.
--- NOTE | 2022-01-08 15:05 | NUR ---
dr kirkland at bedside for eval.
--- NOTE | 2022-01-08 15:33 | NUR ---
urine and covid swab collected and sent to lab.
[2022-01-08 15:49] LABS: BASOPHILS # (AUTO) 0.1 K/uL (0.0-0.2); BASOPHILS % (AUTO) 0.6 % (0.0-2.0); EOSINOPHILS % (AUTO) 0.8 % (0.0-6.0); HEMATOCRIT 33 % (39-51); HEMOGLOBIN 10.7 g/dL (13.5-17.5); LYMPHOCYTES # (AUTO) 1.9 K/uL (0.8-4.8); MEAN CORPUSCULAR HGB CONC 33 g/dl (31.0-36.0); MEAN CORPUSCULAR VOLUME 88 fL (80-96); MONOCYTES # (AUTO) 1.2 K/uL (0.1-1.30); MONOCYTES % (AUTO) 8.3 % (2.0-12.0); NEUTROPHILS # (AUTO) 11.3 K/uL (1.8-8.9); NEUTROPHILS % (AUTO) 77.3 % (43.0-81.0); PLATELET COUNT (AUTO) 535 K/uL (150-450); RED BLOOD CELL COUNT(AUTO) 3.72 MIL/uL (4.5-6.0); WHITE BLOOD COUNT (AUTO) 14.5 K/uL (4.3-11.0)
[2022-01-08 16:02] LABS: CARBON DIOXIDE 28 mmol/L (21-32); CHLORIDE 92 mmol/L (98-107); CREATININE 1.1 mg/dL (0.6-1.3); GLUCOSE 100 mg/dL (74-106); POTASSIUM 3.6 mmol/L (3.5-5.1); SODIUM SERUM 126 mmol/L (136-145); UREA NITROGEN, BLOOD 28 mg/dL (7-18)
[2022-01-08 16:05] LABS: ALANINE AMINOTRANSFERASE 45 U/L (12-78); ALBUMIN 3.8 g/dL (3.4-5.0); ALCOHOL, BLOOD < 3 mg/dL (0-0); ALKALINE PHOSPHATASE 119 U/L (46-116); ASPARTATE AMINOTRANSFERASE 51 U/L (15-37); BILIRUBIN,DIRECT 0.2 mg/dL (0.0-0.2); BILIRUBIN,TOTAL 0.7 mg/dL (0.2-1.0); TOTAL PROTEIN, SERUM 8.1 g/dL (6.4-8.2)
[2022-01-08] MEDS ORDERED: IV NS 0.9% 1,000 ML BAG IV ONE ×2 (16:30→22:00)
[2022-01-08 16:36] LABS: BILIRUBIN,URINE NEGATIVE (NEGATIVE); COLOR,URINE YELLOW (YELLOW); LEUKOCYTE ESTERASE ,URINE NEGATIVE (NEGATIVE); NITRITE, URINE NEGATIVE (NEGATIVE); PROTEIN,URINE NEGATIVE (NEGATIVE); UGLUCOSE NEGATIVE (NEGATIVE); UROBILINOGEN,URINE 0.2 EU/dL (0.2)
[2022-01-08 16:43] LABS: BACTERIA,URINE None seen /HPF (None Seen); RBC,URINE 0-2 /HPF (0-2); SQUAMOUS EPITHELIAL CELL,UR 0-2 /HPF (None Seen); WBC,URINE 0-2 /HPF (0-3)
[2022-01-08 19:20] LABS: CALCIUM, SERUM 7.9 mg/dL (8.5-10.1); CREATININE 0.9 mg/dL (0.6-1.3); POTASSIUM 3.7 mmol/L (3.5-5.1)
[2022-01-08] MEDS ORDERED: ACETAMINOPHEN 325 MG TABLET ONE (20:50)
[2022-01-08] MEDS ORDERED: ACETAMINOPHEN 325 MG TABLET PO ONE (21:00)
[2022-01-08 22:50] LABS: ACETAMINOPHEN 0 ug/ml (10-30)
--- NOTE | 2022-01-09 02:17 | NUR ---
PT SLEEPING IN ROOM. ALL NEEDS MET AT THIS TIME. RESP EVEN AND NON LABORED
[2022-01-09 03:00] VITALS: BP 129/70
--- NOTE | 2022-01-09 04:18 | NUR ---
BLOOD COLLECTED AND SENT TO LAB
[2022-01-09 05:08] LABS: CREATININE 0.8 mg/dL (0.6-1.3); POTASSIUM 3.1 mmol/L (3.5-5.1)
[2022-01-09] MEDS ORDERED: POTASSIUM CHLORIDE 10 MEQ TABLET.SA ONE (05:28)
[2022-01-09] MEDS ORDERED: POTASSIUM CHLORIDE 20 MEQ TAB.PRT.SR PO ONE ×2 (05:28→05:30)
--- NOTE | 2022-01-09 05:44 | NUR ---
OFFERED PT WATER; TOLERATED WELL.
--- NOTE | 2022-01-09 06:50 | NUR ---
FAXED CLINICALS TO [facility]
--- NOTE | 2022-01-09 07:49 | NUR ---
SW called [facility] TEL:[phone] fax:[phone] to get update on possible admission. Intake stated they will call back with update.
--- NOTE | 2022-01-09 08:46 | NUR ---
ACCEPTED AT [facility] UNDER DR. ATWOOD [phone] FOR REPORT TRANSPORT ETA PENDING.
--- NOTE | 2022-01-09 08:49 | NUR ---
[facility] CALLED FOR TRANSPORT, ETA 45-60 MIN PER CORTEZ.
--- NOTE | 2022-01-09 08:49 | NUR ---
Liborio balbuena in ED - 01/09/22 at 0849 by MARLENE [facility] CALLED FOR TRANSPORT, ETA 45-60 MIN PER CORTEZ.
--- NOTE | 2022-01-09 10:31 | NUR ---
[facility] UNIT 280 AT BEDSIDE FOR TRANSPORT TO [facility].
== END 2022-01-09 10:45 ==
LOC: ER 14:30
DX: R45.851 Suicidal ideations (principal); F15.10 Other stimulant abuse, uncomplicated; E87.1 Hypo-osmolality and hyponatremia; E87.6 Hypokalemia; Z20.822 Contact with and (suspected) exposure to COVID-19; G40.909 Epilepsy, unspecified, not intractable, without status epilepticus; Z79.899 Other long term (current) drug therapy
CPT/HCPCS: 99285; 96360; 71045; 85025; 80048 ×3; 80076; 81001; 36415 ×2; 87426; 80143; 80320; 80307; J7030 ×2; C9803; G0480

== ENCOUNTER 2022-01-20 16:22 | Emergency (ER) | payer MEDICAID ==
[~2022-01-20] VITALS: Ht 165.1 cm; Wt 52.6 kg
[2022-01-20] MEDS ORDERED: LEVETIRACETAM SOL (5 ML) 100 MG/ML UDC ONE (17:53)
--- NOTE | 2022-01-20 17:54 | NUR ---
CONTROLLER REPAIRER AND TESTER AT BEDSIDE
[2022-01-20] MEDS: LEVETIRACETAM SOL (5 ML) 100 MG/ML UDC PO SCH ×2 (17:55→21:00)
[2022-01-20 18:10] LABS: BASOPHILS % (AUTO) 0.1 % (0.0-2.0); EOSINOPHILS % (AUTO) 2.8 % (0.0-6.0); HEMATOCRIT 38 % (39-51); HEMOGLOBIN 12.1 g/dL (13.5-17.5); LYMPHOCYTES # (AUTO) 2.1 K/uL (0.8-4.8); MEAN CORPUSCULAR HGB CONC 32 g/dl (31.0-36.0); MEAN CORPUSCULAR VOLUME 88 fL (80-96); MONOCYTES % (AUTO) 9.7 % (2.0-12.0); NEUTROPHILS # (AUTO) 6.5 K/uL (1.8-8.9); NEUTROPHILS % (AUTO) 66.4 % (43.0-81.0); PLATELET COUNT (AUTO) 237 K/uL (150-450); RED BLOOD CELL COUNT(AUTO) 4.33 MIL/uL (4.5-6.0); WHITE BLOOD COUNT (AUTO) 9.8 K/uL (4.3-11.0)
[2022-01-20 18:47] LABS: ALANINE AMINOTRANSFERASE 10 U/L (12-78); ALBUMIN 3.3 g/dL (3.4-5.0); ALCOHOL, BLOOD < 3 mg/dL (0-0); ALKALINE PHOSPHATASE 78 U/L (46-116); ASPARTATE AMINOTRANSFERASE 16 U/L (15-37); BILIRUBIN,DIRECT 0.1 mg/dL (0.0-0.2); BILIRUBIN,TOTAL 0.2 mg/dL (0.2-1.0); CALCIUM, SERUM 9.1 mg/dL (8.5-10.1); CARBON DIOXIDE 35 mmol/L (21-32); CHLORIDE 95 mmol/L (98-107); CREATININE 0.9 mg/dL (0.6-1.3); GLUCOSE 108 mg/dL (74-106); POTASSIUM 4.9 mmol/L (3.5-5.1); SODIUM SERUM 131 mmol/L (136-145); TOTAL PROTEIN, SERUM 7.7 g/dL (6.4-8.2); UREA NITROGEN, BLOOD 17 mg/dL (7-18)
[2022-01-20 18:52] LABS: ACETAMINOPHEN 0 ug/ml (10-30)
--- NOTE | 2022-01-20 19:05 | NUR ---
1635 BIBBSELF GOT DISCHARGED FROM [facility] THIS MORNING BUT LOST ALL HIS MEDICATIONS,STILL FEELING SUICIDAL. PT A/OX3. TOLERATING R/A WELL WITH NO RESP DISTRESS. RR EVEN AND NONLABORED. PT CHANGED IN GOWN, SAFETY MEASURES IN PLACE.
--- NOTE | 2022-01-20 22:18 | NUR ---
URINE COLLECTED AND SENT TO LAB
--- NOTE | 2022-01-21 00:19 | NUR ---
PER LAB URINE SAMPLE NOT SUFFICIENT ENOUGH FOR [facility]; WILL ATTEMPT TO COLLECTED MORE URINE
[2022-01-21 00:22] LABS: BILIRUBIN,URINE NEGATIVE (NEGATIVE); COLOR,URINE YELLOW (YELLOW); LEUKOCYTE ESTERASE ,URINE NEGATIVE (NEGATIVE); NITRITE, URINE NEGATIVE (NEGATIVE); PH,URINE 7.5 (5.0-8.0); PROTEIN,URINE NEGATIVE (NEGATIVE); UGLUCOSE NEGATIVE (NEGATIVE); UROBILINOGEN,URINE 0.2 EU/dL (0.2)
--- NOTE | 2022-01-21 00:25 | NUR ---
URINE COLLECTED AND SENT TO LAB
--- NOTE | 2022-01-21 01:57 | NUR ---
FAXED CLINICALS TO [facility]
--- NOTE | 2022-01-21 07:51 | NUR ---
MEDICAL CLEARANCE FAXED TO [facility].
--- NOTE | 2022-01-21 08:12 | NUR ---
ATTEMPTED TO CALL [facility], LINE DOWN.
--- NOTE | 2022-01-21 08:39 | NUR ---
CALLED [facility], MEDICAL CLEARANCE RECEIVED AND AWAITING FEEDBACK PER JEFFERY.
--- NOTE | 2022-01-21 09:35 | NUR ---
TYSON contacted [facility] for updates. Pt was accepted and will be transported at 1 pm. SW informed ER staff.
--- NOTE | 2022-01-21 09:46 | NUR ---
accepted to [facility] , transfer ETA 1300
[2022-01-21] MEDS: LEVETIRACETAM SOL (5 ML) 100 MG/ML UDC PO SCH (09:48)
[2022-01-21] MEDS ORDERED: LEVETIRACETAM SOL (5 ML) 100 MG/ML UDC ONE (09:55)
--- NOTE | 2022-01-21 12:21 | NUR ---
REPORT GIVEN TO TRAVON HAYES. [facility] FOR CURRICULUM COORDINATOR. TRANSPORTED IN STABLE CONDITION.
--- NOTE | 2022-01-21 12:25 | NUR ---
picked up by [facility] going to [facility]
[2022-01-21 14:02] VITALS: BP 128/71
== END 2022-01-21 12:25 ==
LOC: ER 16:58
DX: R45.851 Suicidal ideations (principal); F29 Unspecified psychosis not due to a substance or known physiological condition; G40.909 Epilepsy, unspecified, not intractable, without status epilepticus; Z20.822 Contact with and (suspected) exposure to COVID-19
CPT/HCPCS: 99285; 85025; 80048; 80076; 36415; 80164; 87426; 80143; 80320; 80307; 81003; J1953 ×2; C9803; G0480

== ENCOUNTER 2022-02-06 06:20 | Emergency (ER) | payer MEDICAID ==
[~2022-02-06] VITALS: Ht 167.6 cm; Wt 63.5 kg
--- NOTE | 2022-02-06 06:47 | NUR ---
PTBIBSELF REQUESTING FOR PSYCH ADMIT. PT A/OX3. TOLERATING R/A WELL WITH NO RESP DISTRESS. AMBULATORY WITH STEADY GAIT. PT CHANGED IN GOWN, BELONGINGS COLLECTED AND PLACED IN LOCKER, WANDED BY SECURITY. SAFETY MEASURES IN PLACE.
--- NOTE | 2022-02-06 07:07 | NUR ---
PHLEBOTMIST AT PT'S BEDSIDE.
[2022-02-06 07:18] LABS: BASOPHILS % (AUTO) 0.2 % (0.0-2.0); EOSINOPHILS % (AUTO) 0.9 % (0.0-6.0); HEMATOCRIT 30 % (39-51); HEMOGLOBIN 9.5 g/dL (13.5-17.5); LYMPHOCYTES # (AUTO) 1.6 K/uL (0.8-4.8); LYMPHOCYTES % (AUTO) 10.6 % (20.0-44.0); MEAN CORPUSCULAR HGB CONC 32 g/dl (31.0-36.0); MEAN CORPUSCULAR VOLUME 86 fL (80-96); MONOCYTES % (AUTO) 13.7 % (2.0-12.0); NEUTROPHILS # (AUTO) 11.1 K/uL (1.8-8.9); NEUTROPHILS % (AUTO) 74.6 % (43.0-81.0); PLATELET COUNT (AUTO) 392 K/uL (150-450); RED BLOOD CELL COUNT(AUTO) 3.43 MIL/uL (4.5-6.0); WHITE BLOOD COUNT (AUTO) 14.8 K/uL (4.3-11.0)
[2022-02-06 07:49] LABS: BILIRUBIN,URINE NEGATIVE (NEGATIVE); COLOR,URINE YELLOW (YELLOW); LEUKOCYTE ESTERASE ,URINE NEGATIVE (NEGATIVE); NITRITE, URINE NEGATIVE (NEGATIVE); PH,URINE 6.5 (5.0-8.0); PROTEIN,URINE NEGATIVE (NEGATIVE); UGLUCOSE NEGATIVE (NEGATIVE); UROBILINOGEN,URINE 0.2 EU/dL (0.2)
[2022-02-06 09:00] LABS: ALBUMIN 2.6 g/dL (3.4-5.0); ALCOHOL, BLOOD < 3 mg/dL (0-0); ALKALINE PHOSPHATASE 82 U/L (46-116); BILIRUBIN,TOTAL 0.5 mg/dL (0.2-1.0); CALCIUM, SERUM 8.5 mg/dL (8.5-10.1); CARBON DIOXIDE 26 mmol/L (21-32); CHLORIDE 91 mmol/L (98-107); CREATININE 0.9 mg/dL (0.6-1.3); GLUCOSE 81 mg/dL (74-106); POTASSIUM 4.7 mmol/L (3.5-5.1); SODIUM SERUM 126 mmol/L (136-145); TOTAL PROTEIN, SERUM 7.5 g/dL (6.4-8.2)
[2022-02-06 09:06] LABS: ACETAMINOPHEN 0 ug/ml (10-30)
[2022-02-06] MEDS ORDERED: IV NS 0.9% 1,000 ML BAG IV ONE (09:30)
--- NOTE | 2022-02-06 09:58 | NUR ---
TYSON faxed clinicals to TEL:[phone] fax:[phone] for voluntary psychiatric treatment at [facility] [[facility] [place] [address] FAX:[phone]].
--- NOTE | 2022-02-06 10:17 | NUR ---
SW received call fron [facility] intake stating that they received the clinicals and nursing sup is reviewing them at this time.
--- NOTE | 2022-02-06 10:26 | NUR ---
LAC #20, IVF INFUSING WELL
--- NOTE | 2022-02-06 10:38 | NUR ---
Pt. has been accepted to [facility] under the care of Dr. Lucia, Nurse to Nurse report to be called at tel: [phone]. Pt. will be picked up between 11:30am-12:00pm. SW notified RNRachid.
--- NOTE | 2022-02-06 11:34 | NUR ---
ATTEMPTED TO GIVE REPORT AT NUMBER PROVIDED BUT NO RESPONSE; LEFT VOICE MESSAGE.
--- NOTE | 2022-02-06 12:11 | NUR ---
IV removed. Catheter intact and site benign. Pressure and 4x4 applied to site. No bleeding noted.
--- NOTE | 2022-02-06 12:50 | NUR ---
Patient discharged to [facility] in stable condition accompanied by private transporter. Written and verbal after care instructions given. Patient verbalizes understanding of instruction.
[2022-02-06 12:57] VITALS: BP 128/67
[2022-02-06 13:58] LABS: ALANINE AMINOTRANSFERASE 12 U/L (12-78); BILIRUBIN,DIRECT 0.1 mg/dL (0.0-0.2)
[2022-02-06 14:01] LABS: ASPARTATE AMINOTRANSFERASE 25 U/L (15-37)
[2022-02-06 14:08] LABS: UREA NITROGEN, BLOOD 11 mg/dL (7-18)
== END 2022-02-06 12:57 ==
LOC: ER 06:22
DX: F20.9 Schizophrenia, unspecified (principal); E87.1 Hypo-osmolality and hyponatremia; Z59.00 Homelessness unspecified; Z20.822 Contact with and (suspected) exposure to COVID-19; D72.829 Elevated white blood cell count, unspecified; D64.9 Anemia, unspecified; G40.909 Epilepsy, unspecified, not intractable, without status epilepticus; Z79.899 Other long term (current) drug therapy
CPT/HCPCS: 99284; 96360; 85025; 80048; 80076; 81003; 36415; 87426; 80143; 80320; 80307; J7030; C9803; G0480

== ENCOUNTER 2022-03-31 14:42 | Emergency (ER) | payer MEDICAID ==
[~2022-03-31] VITALS: Ht 165.1 cm; Wt 54.4 kg
[~2022-03-31 14:42] MED LIST changes: +DOXY100C PO; +FLUP10TA12 PO; -FLUP5TAB14 PO; -QUET100T PO; -TEMA15CA PO
[2022-03-31 15:49] LABS: BASOPHILS % (AUTO) 0.5 % (0.0-2.0); EOSINOPHILS % (AUTO) 11.9 % (0.0-6.0); HEMATOCRIT 35 % (39-51); HEMOGLOBIN 11.4 g/dL (13.5-17.5); LYMPHOCYTES # (AUTO) 1.7 K/uL (0.8-4.8); LYMPHOCYTES % (AUTO) 30.9 % (20.0-44.0); MEAN CORPUSCULAR HGB CONC 33 g/dl (31.0-36.0); MEAN CORPUSCULAR VOLUME 89 fL (80-96); MONOCYTES # (AUTO) 0.5 K/uL (0.1-1.30); MONOCYTES % (AUTO) 9.2 % (2.0-12.0); NEUTROPHILS # (AUTO) 2.6 K/uL (1.8-8.9); NEUTROPHILS % (AUTO) 47.5 % (43.0-81.0); PLATELET COUNT (AUTO) 278 K/uL (150-450); RED BLOOD CELL COUNT(AUTO) 3.95 MIL/uL (4.5-6.0); WHITE BLOOD COUNT (AUTO) 5.4 K/uL (4.3-11.0)
[2022-03-31] MEDS ORDERED: IBUPROFEN 600 MG TABLET PO ONE (16:00)
[2022-03-31 16:08] LABS: ALANINE AMINOTRANSFERASE 18 U/L (12-78); ALCOHOL, BLOOD < 3 mg/dL (0-0); ALKALINE PHOSPHATASE 66 U/L (46-116); ASPARTATE AMINOTRANSFERASE 22 U/L (15-37); BILIRUBIN,DIRECT 0.1 mg/dL (0.0-0.2); BILIRUBIN,TOTAL 0.3 mg/dL (0.2-1.0); CALCIUM, SERUM 8.8 mg/dL (8.5-10.1); CARBON DIOXIDE 30 mmol/L (21-32); CHLORIDE 96 mmol/L (98-107); GLUCOSE 77 mg/dL (74-106); POTASSIUM 3.7 mmol/L (3.5-5.1); SODIUM SERUM 129 mmol/L (136-145); TOTAL PROTEIN, SERUM 6.7 g/dL (6.4-8.2); UREA NITROGEN, BLOOD 5 mg/dL (7-18)
[2022-03-31] MEDS ORDERED: CEPHALEXIN MONOHYDRATE 500 MG CAPSULE PO ONE ×3 (16:10→23:31)
[2022-03-31] MEDS ORDERED: IBUPROFEN 600 MG TABLET ONE (16:10)
[2022-03-31 16:15] VITALS: BP 146/74
[2022-03-31 16:15] LABS: ACETAMINOPHEN 0 ug/ml (10-30)
--- NOTE | 2022-03-31 17:25 | NUR ---
URINE SAMPLE REQUESTED AGAIN
[2022-03-31 17:47] LABS: BILIRUBIN,URINE NEGATIVE (NEGATIVE); COLOR,URINE YELLOW (YELLOW); LEUKOCYTE ESTERASE ,URINE NEGATIVE (NEGATIVE); NITRITE, URINE NEGATIVE (NEGATIVE); PROTEIN,URINE NEGATIVE (NEGATIVE); UGLUCOSE NEGATIVE (NEGATIVE)
--- NOTE | 2022-03-31 18:42 | NUR ---
FAXED CLINICALS TO [facility].
[2022-03-31 18:52] LABS: BACTERIA,URINE None seen /HPF (None Seen); RBC,URINE 0-2 /HPF (0-2); SQUAMOUS EPITHELIAL CELL,UR 0-2 /HPF (None Seen); WBC,URINE 0-2 /HPF (0-3)
--- NOTE | 2022-03-31 22:22 | NUR ---
PT ACCEPTED AT [facility] UNDER THE CARE OF DR. COLLAZO. REPORT WAS GIVEN TO MELVIN BANSAL FOR STEVE
--- NOTE | 2022-03-31 22:24 | NUR ---
SOLAR HOT WATER INSTALLER ETA [phone]
[2022-03-31] MEDS ORDERED: CEPHALEXIN MONOHYDRATE 500 MG CAPSULE PO SCH (23:30)
--- NOTE | 2022-04-01 00:01 | NUR ---
PT IS PICKED UP BY [facility] FROM [facility]SP[facility]. ALL BELONGINGS GIVEN TO CELL BIOLOGIST. PT IS IN STABLE CONDITION.
== END 2022-04-01 00:06 ==
LOC: ER 14:57
DX: R45.851 Suicidal ideations (principal); F19.10 Other psychoactive substance abuse, uncomplicated; L03.031 Cellulitis of right toe; G40.909 Epilepsy, unspecified, not intractable, without status epilepticus; E87.1 Hypo-osmolality and hyponatremia; F20.0 Paranoid schizophrenia; F17.200 Nicotine dependence, unspecified, uncomplicated; Z60.2 Problems related to living alone; Z79.899 Other long term (current) drug therapy; Z20.822 Contact with and (suspected) exposure to COVID-19
CPT/HCPCS: 99285; 85025; 80048; 80076; 81001; 36415; 87426; 80143; 80320; 80307; C9803; G0480

== ENCOUNTER 2022-12-24 10:27 | Emergency (ER) | payer MEDICAID ==
[~2022-12-24] VITALS: Ht 165.1 cm; Wt 48.5 kg
[~2022-12-24 10:27] MED LIST changes: -DOXY100C PO; -HYDR-500 PO; -IBUP-1957 PO; -LORA-259 PO; +NALO4SPR BNOSTRILS; -TRAM50TA2 PO; -TRAZ-182 PO; -TRIH2TAB3 PO; +TRIH2TAB4 PO
[2022-12-24 11:00] VITALS: TEMP 98.2
[2022-12-24] MEDS ORDERED: ACETAMINOPHEN ES 500 MG TABLET PO ONE (11:00)
[2022-12-24] MEDS ORDERED: ACETAMINOPHEN ES 500 MG TABLET ONE (11:14)
[2022-12-24 14:26] VITALS: BP 121/60; O2SAT 97
== END 2022-12-24 14:26 | disposition home or self-care (01) ==
LOC: ER 10:29
DX: S00.83XA Contusion of other part of head, initial encounter (principal); F20.0 Paranoid schizophrenia; F17.200 Nicotine dependence, unspecified, uncomplicated; Z59.00 Homelessness unspecified; X58.XXXA Exposure to other specified factors, initial encounter; Y93.89 Activity, other specified; Y92.410 Unspecified street and highway as the place of occurrence of the external cause; Y99.8 Other external cause status
CPT/HCPCS: 70450-TC; 71045-TC

== ENCOUNTER 2023-01-07 08:09 | Emergency (ER) | payer MEDICAID ==
[~2023-01-07] VITALS: Ht 165.1 cm; Wt 59.0 kg
[2023-01-07 08:27] VITALS: TEMP 98.2
[2023-01-07 09:02] LABS: BASOPHILS # (AUTO) 0.1 K/uL (0.0-0.2); BASOPHILS % (AUTO) 0.9 % (0.0-2.0); EOSINOPHILS # (AUTO) 0.3 K/uL (0.0-0.7); EOSINOPHILS % (AUTO) 3.7 % (0.0-6.0); HEMATOCRIT 32 % (39-51); HEMOGLOBIN 10.8 g/dL (13.5-17.5); LYMPHOCYTES # (AUTO) 2.1 K/uL (0.8-4.8); MEAN CORPUSCULAR HEMOGLOBIN 31 PG (26.0-33.0); MEAN CORPUSCULAR HGB CONC 33 g/dl (31.0-36.0); MEAN CORPUSCULAR VOLUME 93 fL (80-96); MONOCYTES # (AUTO) 0.7 K/uL (0.1-1.30); MONOCYTES % (AUTO) 8.4 % (2.0-12.0); NEUTROPHILS # (AUTO) 5.1 K/uL (1.8-8.9); PLATELET COUNT (AUTO) 351 K/uL (150-450); RED BLOOD CELL COUNT(AUTO) 3.48 MIL/uL (4.5-6.0); RED CELL DISTRIBUTION WIDTH 18.1 % (11.5-15.0); WHITE BLOOD COUNT (AUTO) 8.3 K/uL (4.3-11.0)
[2023-01-07 09:02] LABS: APPEARANCE,URINE CLEAR (CLEAR); BILIRUBIN,URINE NEGATIVE (NEGATIVE); BLOOD, URINE NEGATIVE Ery/uL (NEGATIVE); COLOR,URINE YELLOW (YELLOW); KETONES,URINE NEGATIVE (NEGATIVE); LEUKOCYTE ESTERASE ,URINE NEGATIVE (NEGATIVE); NITRITE, URINE NEGATIVE (NEGATIVE); PROTEIN,URINE NEGATIVE (NEGATIVE); UGLUCOSE NEGATIVE (NEGATIVE); UROBILINOGEN,URINE 0.2 EU/dL (0.2)
[2023-01-07 09:33] LABS: ALANINE AMINOTRANSFERASE 20 U/L (12-78); ALBUMIN 3.7 g/dL (3.4-5.0); ALKALINE PHOSPHATASE 71 U/L (46-116); ASPARTATE AMINOTRANSFERASE 25 U/L (15-37); BILIRUBIN,DIRECT 0.1 mg/dL (0.0-0.2); BILIRUBIN,TOTAL 0.2 mg/dL (0.2-1.0); CALCIUM, SERUM 8.8 mg/dL (8.5-10.1); CARBON DIOXIDE 28 mmol/L (21-32); CHLORIDE 91 mmol/L (98-107); CREATININE 0.8 mg/dL (0.6-1.3); GLUCOSE 77 mg/dL (74-106); SODIUM SERUM 128 mmol/L (136-145); TOTAL PROTEIN, SERUM 7.3 g/dL (6.4-8.2); UREA NITROGEN, BLOOD 16 mg/dL (7-18)
[2023-01-07 09:34] LABS: ACETAMINOPHEN <10 ug/ml (10-30); ALCOHOL, BLOOD < 3 mg/dL (0-10); SALICYLATE 2.6 mg/dL (2.8-20.0)
[2023-01-07 09:47] LABS: AMPHETAMINE, URINE NEGATIVE (NEGATIVE); BARBITURATE, URINE NEGATIVE (NEGATIVE); BENZODIAZEPINE, URINE NEGATIVE (NEGATIVE); CANNABINOID, URINE POSITIVE (NEGATIVE); COCCAINE, URINE NEGATIVE (NEGATIVE); OPIATE, URINE NEGATIVE (NEGATIVE); PHENCYCLIDINE SCREEN,URINE NEGATIVE (NEGATIVE)
[2023-01-07 10:11] VITALS: BP 136/82; O2SAT 97
== END 2023-01-07 09:40 | disposition home or self-care (01) ==
LOC: ER 08:19
DX: R45.851 Suicidal ideations (principal); G40.909 Epilepsy, unspecified, not intractable, without status epilepticus; E11.9 Type 2 diabetes mellitus without complications; F20.0 Paranoid schizophrenia; F17.200 Nicotine dependence, unspecified, uncomplicated; Z20.822 Contact with and (suspected) exposure to COVID-19; Z79.899 Other long term (current) drug therapy; Z59.00 Homelessness unspecified
CPT/HCPCS: 99285; 85025; 80048; 80076; 81003; 36415; 87426; 80143; 80320; 80307; C9803; G0480

== ENCOUNTER 2023-01-18 05:40 | Emergency (ER) | payer MEDICAID ==
[~2023-01-18] VITALS: Ht 165.1 cm; Wt 59.0 kg
[2023-01-18 06:37] VITALS: BP 138/88; TEMP 98.2; O2SAT 99
[2023-01-18] MEDS ORDERED: IBUPROFEN 600 MG TABLET ONE (06:44)
[2023-01-18] MEDS: IBUPROFEN 600 MG TABLET PO ONE (06:46)
== END 2023-01-18 07:02 | disposition home or self-care (01) ==
LOC: ER 05:40
DX: M54.2 Cervicalgia (principal); G40.909 Epilepsy, unspecified, not intractable, without status epilepticus; E11.9 Type 2 diabetes mellitus without complications; F20.0 Paranoid schizophrenia; F17.200 Nicotine dependence, unspecified, uncomplicated; Z79.899 Other long term (current) drug therapy; Z59.00 Homelessness unspecified

== ENCOUNTER 2023-03-21 05:38 | Emergency (ER) | payer MEDICAID ==
[~2023-03-21] VITALS: Ht 162.8 cm; Wt 60.8 kg
[2023-03-21 06:55] VITALS: BP 141/81; TEMP 97.9; O2SAT 98
== END 2023-03-21 07:10 | disposition left against medical advice (07) ==
LOC: ER 05:49
DX: S80.01XA Contusion of right knee, initial encounter (principal); S09.8XXA Other specified injuries of head, initial encounter; G40.909 Epilepsy, unspecified, not intractable, without status epilepticus; E11.9 Type 2 diabetes mellitus without complications; F20.0 Paranoid schizophrenia; F19.10 Other psychoactive substance abuse, uncomplicated; F17.200 Nicotine dependence, unspecified, uncomplicated; Z79.899 Other long term (current) drug therapy; W19.XXXA Unspecified fall, initial encounter; Y93.89 Activity, other specified; Y92.89 Other specified places as the place of occurrence of the external cause; Y99.8 Other external cause status

== ENCOUNTER 2023-07-26 05:43 | Emergency (ER) | payer MEDICAID ==
[~2023-07-26] VITALS: Ht 165.1 cm; Wt 59.0 kg
[2023-07-26 06:38] LABS: BASOPHILS # (AUTO) 0.1 K/uL (0.0-0.2); BASOPHILS % (AUTO) 0.9 % (0.0-2.0); EOSINOPHILS # (AUTO) 0.3 K/uL (0.0-0.7); HEMATOCRIT 33 % (39-51); HEMOGLOBIN 10.9 g/dL (13.5-17.5); LYMPHOCYTES % (AUTO) 28.2 % (20.0-44.0); MEAN CORPUSCULAR HEMOGLOBIN 30 PG (26.0-33.0); MEAN CORPUSCULAR HGB CONC 34 g/dl (31.0-36.0); MEAN CORPUSCULAR VOLUME 89 fL (80-96); MONOCYTES # (AUTO) 0.6 K/uL (0.1-1.30); MONOCYTES % (AUTO) 8.8 % (2.0-12.0); NEUTROPHILS # (AUTO) 4.2 K/uL (1.8-8.9); NEUTROPHILS % (AUTO) 58.1 % (43.0-81.0); PLATELET COUNT (AUTO) 323 K/uL (150-450); RED BLOOD CELL COUNT(AUTO) 3.68 MIL/uL (4.5-6.0); WHITE BLOOD COUNT (AUTO) 7.2 K/uL (4.3-11.0)
[2023-07-26 06:41] LABS: APPEARANCE,URINE CLEAR (CLEAR); BILIRUBIN,URINE 1+ (NEGATIVE); BLOOD, URINE NEGATIVE Ery/uL (NEGATIVE); COLOR,URINE YELLOW (YELLOW); KETONES,URINE 1+ mg/dL (NEGATIVE); LEUKOCYTE ESTERASE ,URINE NEGATIVE (NEGATIVE); NITRITE, URINE NEGATIVE (NEGATIVE); PROTEIN,URINE TRACE mg/dl (NEGATIVE); UGLUCOSE NEGATIVE (NEGATIVE); UROBILINOGEN,URINE 0.2 EU/dL (0.2)
[2023-07-26 06:43] LABS: ADD URINE CULTURE NO; BACTERIA,URINE Rare /HPF (None Seen); SQUAMOUS EPITHELIAL CELL,UR Rare /HPF (None Seen); WBC,URINE 0-2 /HPF (0-3)
[2023-07-26 06:43] LABS: CALCIUM, SERUM 9.4 mg/dL (8.5-10.1); CARBON DIOXIDE 27 mmol/L (21-32); CHLORIDE 100 mmol/L (98-107); CREATININE 1.1 mg/dL (0.6-1.3); GLUCOSE 87 mg/dL (74-106); POTASSIUM 3.8 mmol/L (3.5-5.1); SODIUM SERUM 136 mmol/L (136-145); UREA NITROGEN, BLOOD 19 mg/dL (7-18)
[2023-07-26 06:49] LABS: ALANINE AMINOTRANSFERASE 45 U/L (12-78); ALBUMIN 3.5 g/dL (3.4-5.0); ALCOHOL, BLOOD < 3 mg/dL (0-10); ALKALINE PHOSPHATASE 80 U/L (46-116); ASPARTATE AMINOTRANSFERASE 85 U/L (15-37); BILIRUBIN,DIRECT 0.3 mg/dL (0.0-0.2); BILIRUBIN,TOTAL 1.1 mg/dL (0.2-1.0); TOTAL PROTEIN, SERUM 7.2 g/dL (6.4-8.2)
[2023-07-26 06:52] LABS: ACETAMINOPHEN <10 ug/ml (10-30); SALICYLATE 2.3 mg/dL (2.8-20.0)
[2023-07-26 06:57] LABS: BARBITURATE, URINE NEGATIVE (NEGATIVE); BENZODIAZEPINE, URINE NEGATIVE (NEGATIVE); OPIATE, URINE NEGATIVE (NEGATIVE); PHENCYCLIDINE SCREEN,URINE NEGATIVE (NEGATIVE)
[2023-07-26 07:00] LABS: AMPHETAMINE, URINE POSITIVE (NEGATIVE); CANNABINOID, URINE POSITIVE (NEGATIVE); COCCAINE, URINE POSITIVE (NEGATIVE)
[2023-07-26] MEDS ORDERED: ACETAMINOPHEN ES 500 MG TABLET ONE (07:08)
[2023-07-26] MEDS: ACETAMINOPHEN ES 500 MG TABLET PO ONE (07:09)
[2023-07-26 08:32] VITALS: BP 130/81; TEMP 98.3; O2SAT 99
== END 2023-07-26 10:02 | disposition left against medical advice (07) ==
LOC: ER 05:46
DX: R45.851 Suicidal ideations (principal); G40.909 Epilepsy, unspecified, not intractable, without status epilepticus; F17.200 Nicotine dependence, unspecified, uncomplicated; F19.10 Other psychoactive substance abuse, uncomplicated; Z79.899 Other long term (current) drug therapy; Z20.822 Contact with and (suspected) exposure to COVID-19; Z59.00 Homelessness unspecified
CPT/HCPCS: 36415; 80048-TC; 80076-TC; 81001; 85025-TC; G0480

== ENCOUNTER 2023-09-15 07:51 | Emergency (ER) | payer MEDICAID ==
[~2023-09-15] VITALS: Ht 165.1 cm; Wt 59.4 kg
[2023-09-15 08:31] VITALS: BP 126/79; TEMP 97.9; O2SAT 97
== END 2023-09-15 08:57 | disposition home or self-care (01) ==
LOC: ER 08:48
DX: F29 Unspecified psychosis not due to a substance or known physiological condition (principal); F19.10 Other psychoactive substance abuse, uncomplicated; G40.909 Epilepsy, unspecified, not intractable, without status epilepticus; E11.9 Type 2 diabetes mellitus without complications; F20.0 Paranoid schizophrenia; F17.200 Nicotine dependence, unspecified, uncomplicated; F14.10 Cocaine abuse, uncomplicated; F12.10 Cannabis abuse, uncomplicated; Z59.00 Homelessness unspecified

== ENCOUNTER 2023-10-19 10:00 | Emergency (ER) | payer MEDICAID ==
[~2023-10-19] VITALS: Ht 165.1 cm; Wt 60.8 kg
[2023-10-19 10:48] LABS: BASOPHILS # (AUTO) 0.1 K/uL (0.0-0.2); BASOPHILS % (AUTO) 0.9 % (0.0-2.0); EOSINOPHILS # (AUTO) 0.3 K/uL (0.0-0.7); EOSINOPHILS % (AUTO) 3.4 % (0.0-6.0); HEMATOCRIT 29 % (39-51); HEMOGLOBIN 9.5 g/dL (13.5-17.5); LYMPHOCYTES # (AUTO) 1.5 K/uL (0.8-4.8); LYMPHOCYTES % (AUTO) 19.2 % (20.0-44.0); MEAN CORPUSCULAR HEMOGLOBIN 30 PG (26.0-33.0); MEAN CORPUSCULAR HGB CONC 33 g/dl (31.0-36.0); MEAN CORPUSCULAR VOLUME 91 fL (80-96); MONOCYTES # (AUTO) 0.6 K/uL (0.1-1.30); MONOCYTES % (AUTO) 7.4 % (2.0-12.0); NEUTROPHILS # (AUTO) 5.4 K/uL (1.8-8.9); NEUTROPHILS % (AUTO) 69.1 % (43.0-81.0); PLATELET COUNT (AUTO) 381 K/uL (150-450); RED BLOOD CELL COUNT(AUTO) 3.17 MIL/uL (4.5-6.0); RED CELL DISTRIBUTION WIDTH 15.7 % (11.5-15.0); WHITE BLOOD COUNT (AUTO) 7.8 K/uL (4.3-11.0)
[2023-10-19 10:56] LABS: CALCIUM, SERUM 8.7 mg/dL (8.5-10.1); CARBON DIOXIDE 27 mmol/L (21-32); CHLORIDE 103 mmol/L (98-107); CREATININE 0.9 mg/dL (0.6-1.3); GLUCOSE 119 mg/dL (74-106); POTASSIUM 3.4 mmol/L (3.5-5.1); SODIUM SERUM 137 mmol/L (136-145); UREA NITROGEN, BLOOD 14 mg/dL (7-18)
[2023-10-19 11:02] LABS: ACETAMINOPHEN <10 ug/ml (10-30); ALANINE AMINOTRANSFERASE 46 U/L (12-78); ALBUMIN 3.2 g/dL (3.4-5.0); ALCOHOL, BLOOD < 3 mg/dL (0-10); ALKALINE PHOSPHATASE 81 U/L (46-116); ASPARTATE AMINOTRANSFERASE 67 U/L (15-37); BILIRUBIN,DIRECT 0.2 mg/dL (0.0-0.2); BILIRUBIN,TOTAL 0.6 mg/dL (0.2-1.0); SALICYLATE 1.9 mg/dL (2.8-20.0); TOTAL PROTEIN, SERUM 6.3 g/dL (6.4-8.2)
[2023-10-19 14:26] LABS: APPEARANCE,URINE CLEAR (CLEAR); BILIRUBIN,URINE NEGATIVE (NEGATIVE); BLOOD, URINE NEGATIVE Ery/uL (NEGATIVE); COLOR,URINE YELLOW (YELLOW); KETONES,URINE NEGATIVE (NEGATIVE); LEUKOCYTE ESTERASE ,URINE NEGATIVE (NEGATIVE); NITRITE, URINE NEGATIVE (NEGATIVE); PROTEIN,URINE NEGATIVE (NEGATIVE); UGLUCOSE NEGATIVE (NEGATIVE); UROBILINOGEN,URINE 0.2 EU/dL (0.2)
[2023-10-19 14:40] LABS: AMPHETAMINE, URINE POSITIVE (NEGATIVE); BARBITURATE, URINE NEGATIVE (NEGATIVE); BENZODIAZEPINE, URINE NEGATIVE (NEGATIVE); CANNABINOID, URINE NEGATIVE (NEGATIVE); COCCAINE, URINE NEGATIVE (NEGATIVE); OPIATE, URINE NEGATIVE (NEGATIVE); PHENCYCLIDINE SCREEN,URINE NEGATIVE (NEGATIVE)
[2023-10-19] MEDS ORDERED: ACETAMINOPHEN 325 MG TABLET ONE (15:17)
[2023-10-19] MEDS: ACETAMINOPHEN 325 MG TABLET PO ONE (15:20)
[2023-10-19 19:14] VITALS: BP 132/66; TEMP 98.4; O2SAT 97
== END 2023-10-19 19:14 | disposition home or self-care (01) ==
LOC: ER 10:04
DX: M25.551 Pain in right hip (principal); M25.561 Pain in right knee; F19.10 Other psychoactive substance abuse, uncomplicated; G40.909 Epilepsy, unspecified, not intractable, without status epilepticus; E11.9 Type 2 diabetes mellitus without complications; F20.0 Paranoid schizophrenia; F17.200 Nicotine dependence, unspecified, uncomplicated; F12.10 Cannabis abuse, uncomplicated; F14.10 Cocaine abuse, uncomplicated; Z60.2 Problems related to living alone; Z59.00 Homelessness unspecified; Z20.822 Contact with and (suspected) exposure to COVID-19
CPT/HCPCS: 36415; 73501; 73552; 80048-TC; 80076-TC; 85025-TC; 98960; G0480

== ENCOUNTER 2023-10-26 17:27 | Emergency (ER) | payer MEDICAID ==
[~2023-10-26] VITALS: Ht 165.1 cm; Wt 54.4 kg
[2023-10-26] MEDS: OLANZAPINE ZYDIS 5 MG TAB.RAPDIS PO ONE (18:05)
[2023-10-26 18:08] VITALS: BP 141/71; TEMP 98; O2SAT 98
== END 2023-10-26 18:08 | disposition home or self-care (01) ==
LOC: ER 17:27
DX: F15.10 Other stimulant abuse, uncomplicated (principal); F19.10 Other psychoactive substance abuse, uncomplicated; R51.9 Headache, unspecified; G40.909 Epilepsy, unspecified, not intractable, without status epilepticus; F20.0 Paranoid schizophrenia; E11.9 Type 2 diabetes mellitus without complications; F17.200 Nicotine dependence, unspecified, uncomplicated; F14.10 Cocaine abuse, uncomplicated; Z60.2 Problems related to living alone; Z59.00 Homelessness unspecified

== ENCOUNTER 2024-02-21 14:06 | Emergency (ER) | payer MEDICAID | END 2024-02-21 15:51 | disposition home or self-care (01) | LOC: ER 14:06 | DX: R45.851 Suicidal ideations (principal); Z53.21 Procedure and treatment not carried out due to patient leaving prior to being seen by health care provider ==